=== PATIENT | male | born 1990 | race Caucasian/White ===

== ENCOUNTER 2017-03-03 00:12 | Emergency (ER) | payer OTHER ==
--- NOTE | ~2017-03-03 | ER ---
PATIENT'S NAME: RIGO SAUER [facility] AGE: 26 Y [address] ROOM: [place] [id number] LOCATION: [facility] ADMIT DATE: 03/03/2017 ER/Outpatient Report DISCHARGE DATE: 03/03/2017 FAMILY PHYSICIAN: TOPHER RUTLEDGE MD ATTENDING PHYSICIAN: Kennedy Madrigal Admission date and time documented on the medical record. I saw the patient at 0025 hours. CHIEF COMPLAINT: Fall; pain, left lateral rib cage. HISTORY OF PRESENT ILLNESS: This is a 26-year-old male, about 4 days ago fell against a table injuring his left lateral rib cage. He has been doing fairly well. However, tonight at work he sneezed really hard and had intense pain in his left chest, sharp pain. This happened about 2 hours prior to admission to the emergency room. No other complaints. HOME MEDICATIONS: None. ALLERGIES: NONE. SOCIAL HISTORY: Nonsmoker. Does drink alcohol on occasion. SIGNIFICANT PAST MEDICAL HISTORY: Negative. OPERATIONS: Tonsillectomy and adenoidectomy. REVIEW OF SYSTEMS: All systems reviewed by me are negative with the exception of those discussed in the history of present illness. PHYSICAL EXAMINATION: VITAL SIGNS: Temperature 98, tympanic; pulse 70; respirations 18; blood pressure 143/83; O2 saturation on room air is 97%. HEENT: Negative. LUNGS: Clear. HEART: Regular. CHEST: The patient has tenderness of the left lateral chest wall. No PATIENT'S NAME: RIGO SAUER [facility] AGE: 26 Y [address] ROOM: [place] [address] LOCATION: [facility] ADMIT DATE: 03/03/2017 ER/Outpatient Report DISCHARGE DATE: 03/03/2017 FAMILY PHYSICIAN: TOPHER RUTLEDGE MD ATTENDING PHYSICIAN: Kennedy Madrigal deformity noted. No bruising. SPINE: Negative. ABDOMEN: Soft, nontender. Good bowel tones. NEUROVASCULAR: Intact. IMAGING DATA: X-ray of the chest showed no acute infiltrate or changes. Left rib detail showed no fractured ribs. T-spine showed no fracture or subluxation. We will review all plain films with the radiologist. IMPRESSION: Bruise, left rib cage, secondary to fall. PLAN: The patient dismissed home. Observation. Activity as tolerated. Ice, heat, or combination. Ice, heat to any sore areas intermittently as needed. Flexeril 10 mg 3 times a day, #30; Faucett 7.5/325 as needed for pain, #16. Follow up with personal physician as needed. Discussion ensued with the patient concerning my findings and recommendations, he understands. MD SKYLER RESENDIZ/modl /[id number] d: 03/03/17 0600 t: 03/03/171810, OUTPATIENT REPORT
== END 2017-03-03 01:15 | disposition disaster alternative care site (69) ==
LOC: GACC 00:12
DX: S20.212A Contusion of left front wall of thorax, initial encounter (principal); Z90.89 Acquired absence of other organs; W20.8XXA Other cause of strike by thrown, projected or falling object, initial encounter